=== PATIENT | male | born 1960 | race Caucasian/White ===

== ENCOUNTER 2023-08-15 06:25 | Inpatient (IN) | payer MEDICAID ==
[~2023-08-15] VITALS: Ht 170.2 cm; Wt 55.8 kg
[2023-08-15 06:32] VITALS: BP 134/92; PULSE 79; RESP 16; TEMP 98.7; O2SAT 97
[2023-08-15] MEDS ORDERED: ONDANSETRON 4 MG/2 ML VIAL IVP ONE (06:55)
[2023-08-15] MEDS ORDERED: MORPHINE SULFATE 4 MG/ML SYR IVP ONE (06:55)
[2023-08-15] MEDS ORDERED: NACL 0.9% 1,000 ML IV SCH (06:55)
[2023-08-15] MEDS ORDERED: cefTRIAXone 1,000 MG in DEXT 5% MINI-BAG PLUS 50 ML IV ONE (06:55)
[2023-08-15] MEDS ORDERED: cefTRIAXone 1,000 MG VIAL ONE (07:11)
[2023-08-15 07:30] LABS: BASOPHILS % (AUTO) 0.3 % (0.0-2.0); EOSINOPHILS % (AUTO) 0.3 % (0.0-4.0); HEMATOCRIT 32.8 % (36-52); HEMOGLOBIN 10.8 g/dL (12.0-18.0); LYMPHOCYTES # (AUTO) 1.4 K/uL (2.0-11.5); MEAN CORPUSCULAR HEMOGLOBIN 26 pg (27-31); MEAN CORPUSCULAR HGB CONC 33 g/dL (33-37); MEAN CORPUSCULAR VOLUME 79.6 fL (80-94); MONOCYTES # (AUTO) 0.8 K/uL (0.8-1.0); MONOCYTES % (AUTO) 19.3 % (1.7-9.3); NEUTROPHILS # (AUTO) 1.9 K/uL (1.8-7.7); NEUTROPHILS % (AUTO) 46.1 % (42.2-75.2); PLATELET COUNT (AUTO) 211 K/uL (140-450); RED BLOOD CELL COUNT(AUTO) 4.12 MIL/uL (4.20-6.10); RED CELL DISTRIBUTION WIDTH 18.1 % (11.6-13.7)
[2023-08-15 07:44] LABS: CALCIUM 7.5 mg/dL (8.5-10.1); CARBON DIOXIDE 27.9 mmol/L (21-32); CREATININE 0.8 mg/dL (0.6-1.3)
[2023-08-15 07:47] LABS: POTASSIUM 2.9 mmol/L (3.5-5.1)
[2023-08-15 07:49] LABS: FLU A ANTIGEN negative (NEGATIVE); FLU B ANTIGEN NEGATIVE (NEGATIVE)
[2023-08-15 07:50] LABS: ALBUMIN 1.6 g/dL (3.4-5.0); BILIRUBIN,DIRECT 0.3 mg/dL (0.0-0.3); TOTAL BILIRUBIN 0.5 mg/dL (0.0-1.0); TOTAL PROTEIN, SERUM 5.6 g/dL (6.4-8.2)
[2023-08-15] MEDS ORDERED: POTASSIUM CHLORIDE 10 MEQ TABER PO ONE (07:55)
[2023-08-15 07:56] LABS: LACTIC ACID 2.4 mmol/L (0.4-2.0)
[2023-08-15 08:13] LABS: APPEARANCE,URINE CLEAR (CLEAR); BILIRUBIN,URINE NEGATIVE (NEGATIVE); BLOOD, URINE NEGATIVE (NEGATIVE); COLOR,URINE YELLOW (YELLOW); LEUKOCYTE ESTERASE ,URINE NEGATIVE (NEGATIVE); NITRITE, URINE NEGATIVE (NEGATIVE); PROTEIN,URINE 1+ (NEGATIVE); UGLUCOSE NEGATIVE (NEGATIVE); UROBILINOGEN,URINE 0.2 EU/dL (0.2 - 1)
[2023-08-15] MEDS ORDERED: POTASSIUM CHLORIDE 10 MEQ TABER PO SCH (09:42)
[2023-08-15] MEDS: HYDROcodone/APAP 10/325 MG 1 TAB TAB PO PRN (10:08)
[2023-08-15] MEDS ORDERED: ONDANSETRON 4 MG/2 ML VIAL IVP PRN (11:40)
[2023-08-15] MEDS: NACL 0.9% 1,000 ML IV SCH (11:55)
[2023-08-15] MEDS ORDERED: MORPHINE TAB ER 15 MG TABER PO SCH (12:21)
[2023-08-15 16:25] VITALS: RESP 16; O2SAT 100
[2023-08-15 16:49] LABS: MAGNESIUM 1.4 mg/dL (1.8-2.4); POTASSIUM 3.7 mmol/L (3.5-5.1)
[2023-08-15] MEDS ORDERED: MAG SULF 2000 MG/WATER PREMIX 50 ML IV ONE (17:15)
[2023-08-15 20:00] VITALS: BP 106/69; PULSE 75; RESP 21; TEMP 97.4; O2SAT 100; O2SAT 98
[2023-08-15] MEDS: MORPHINE TAB ER 15 MG TABER PO SCH (21:48)
[2023-08-15] MEDS: DOCUSATE SODIUM 100 MG GELCAP PO SCH (21:48)
[2023-08-15] MEDS: SENNA 8.6 MG TAB PO SCH (21:48)
[2023-08-16] MEDS: NACL 0.9% 1,000 ML IV SCH ×4 (00:10→19:25)
[2023-08-16 04:00] VITALS: BP 114/71; PULSE 80; RESP 20; TEMP 97.8; O2SAT 100
[2023-08-16 07:24] LABS: ANION GAP 10.6 (8-16); CALCIUM 7.3 mg/dL (8.5-10.1); CARBON DIOXIDE 25.2 mmol/L (21-32); CREATININE 0.5 mg/dL (0.6-1.3); POTASSIUM 3.8 mmol/L (3.5-5.1)
[2023-08-16 07:32] LABS: BASOPHILS % (AUTO) 0.3 % (0.0-2.0); EOSINOPHILS % (AUTO) 0.5 % (0.0-4.0); HEMATOCRIT 31.8 % (36-52); HEMOGLOBIN 10.5 g/dL (12.0-18.0); LYMPHOCYTES # (AUTO) 1.7 K/uL (2.0-11.5); LYMPHOCYTES % (AUTO) 35.3 % (20.5-51.1); MEAN CORPUSCULAR HEMOGLOBIN 27 pg (27-31); MEAN CORPUSCULAR HGB CONC 33 g/dL (33-37); MEAN CORPUSCULAR VOLUME 82.8 fL (80-94); MONOCYTES # (AUTO) 0.8 K/uL (0.8-1.0); NEUTROPHILS # (AUTO) 2.3 K/uL (1.8-7.7); NEUTROPHILS % (AUTO) 46.9 % (42.2-75.2); PLATELET COUNT (AUTO) 218 K/uL (140-450); RED BLOOD CELL COUNT(AUTO) 3.84 MIL/uL (4.20-6.10); RED CELL DISTRIBUTION WIDTH 17.6 % (11.6-13.7); WHITE BLOOD COUNT (AUTO) 4.9 K/uL (4.8-10.8)
[2023-08-16 07:50] VITALS: PULSE 68; RESP 20; O2SAT 99
[2023-08-16 08:00] VITALS: BP 129/75; PULSE 87; RESP 19; TEMP 98.8; O2SAT 100
[2023-08-16] MEDS: cefTRIAXone 2,000 MG in DEXTROSE 5% 100 ML IV SCH (09:28)
[2023-08-16] MEDS: DOCUSATE SODIUM 100 MG GELCAP PO SCH ×2 (09:36→21:39)
[2023-08-16] MEDS: TAMSULOSIN 0.4 MG CAP PO SCH (09:36)
[2023-08-16] MEDS: MORPHINE TAB ER 15 MG TABER PO SCH ×2 (09:36→21:39)
[2023-08-16] MEDS: PANTOPRAZOLE 40 MG TABEC PO SCH (09:37)
[2023-08-16] MEDS: SENNA 8.6 MG TAB PO SCH ×2 (09:42→21:40)
[2023-08-16 16:00] VITALS: BP 120/80; PULSE 82; RESP 18; TEMP 98.8; O2SAT 100
[2023-08-16 20:00] VITALS: BP 112/72; PULSE 66; PULSE 80; RESP 17; RESP 20; TEMP 97.8; O2SAT 98; O2SAT 99
[2023-08-17 04:00] VITALS: BP 89/64; PULSE 101; RESP 17; TEMP 98.8; O2SAT 99
[2023-08-17 07:19] LABS: ANION GAP 12.8 (8-16); CARBON DIOXIDE 27.3 mmol/L (21-32); CREATININE 0.9 mg/dL (0.6-1.3); POTASSIUM 4.1 mmol/L (3.5-5.1)
[2023-08-17 09:24] LABS: BASOPHILS % (AUTO) 0.3 % (0.0-2.0); EOSINOPHILS % (AUTO) 0.3 % (0.0-4.0); HEMATOCRIT 34.8 % (36-52); HEMOGLOBIN 11.2 g/dL (12.0-18.0); LYMPHOCYTES # (AUTO) 2.1 K/uL (2.0-11.5); LYMPHOCYTES % (AUTO) 31.7 % (20.5-51.1); MEAN CORPUSCULAR HEMOGLOBIN 26 pg (27-31); MEAN CORPUSCULAR HGB CONC 32 g/dL (33-37); MEAN CORPUSCULAR VOLUME 80.5 fL (80-94); MONOCYTES # (AUTO) 0.8 K/uL (0.8-1.0); MONOCYTES % (AUTO) 11.9 % (1.7-9.3); NEUTROPHILS # (AUTO) 3.8 K/uL (1.8-7.7); NEUTROPHILS % (AUTO) 55.8 % (42.2-75.2); PLATELET COUNT (AUTO) 267 K/uL (140-450); RED BLOOD CELL COUNT(AUTO) 4.33 MIL/uL (4.20-6.10); RED CELL DISTRIBUTION WIDTH 18.4 % (11.6-13.7); WHITE BLOOD COUNT (AUTO) 6.8 K/uL (4.8-10.8)
[2023-08-17] MEDS: PANTOPRAZOLE 40 MG TABEC PO SCH (09:43)
[2023-08-17] MEDS: SENNA 8.6 MG TAB PO SCH (09:43)
[2023-08-17] MEDS: DOCUSATE SODIUM 100 MG GELCAP PO SCH (09:43)
[2023-08-17] MEDS: cefTRIAXone 2,000 MG in DEXTROSE 5% 100 ML IV SCH (09:44)
[2023-08-17] MEDS: MORPHINE TAB ER 15 MG TABER PO SCH (09:46)
[2023-08-17] MEDS: TAMSULOSIN 0.4 MG CAP PO SCH (09:51)
[2023-08-17] MEDS ORDERED: PANT40EC56 PO (10:30)
[2023-08-17] MEDS ORDERED: TRAM50TA3 PO (10:30)
[2023-08-17] MEDS ORDERED: SENN-74 PO (10:30)
[2023-08-17] MEDS ORDERED: DOCU-299 PO (10:30)
[2023-08-17] MEDS ORDERED: TAMS0.4C96 PO (10:30)
[2023-08-17] MEDS: HYDROcodone/APAP 10/325 MG 1 TAB TAB PO PRN (14:26)
== END 2023-08-17 15:45 | disposition home or self-care (01) | DRG 426 ==
LOC: MED 06:25 → MTU 09:37
PROVIDERS: ADMIT Internal Medicine; ATTEND Internal Medicine
DX: E87.1 Hypo-osmolality and hyponatremia (principal); E83.51 Hypocalcemia; E87.6 Hypokalemia; E86.0 Dehydration; N40.0 Benign prostatic hyperplasia without lower urinary tract symptoms; R73.9 Hyperglycemia, unspecified; D64.9 Anemia, unspecified; Z20.822 Contact with and (suspected) exposure to COVID-19; Z85.07 Personal history of malignant neoplasm of pancreas; Z88.6 Allergy status to analgesic agent; E87.5 Hyperkalemia; E83.52 Hypercalcemia
CPT/HCPCS: 36415; 71045; 80048; 80076; 81003; 82553; 83605; 83690; 83735; 83880; 84132; 84484; 85025; 87040; 87081; 87086; 93005; 96365; 96375; 99285; J0696; J1644; J2270; J2405; J3475; J7060; Q9967